=== PATIENT | female | born 1980 | race Caucasian/White ===

== ENCOUNTER 2022-02-07 20:19 | Emergency (ER) | payer OTHER ==
[~2022-02-07] VITALS: Ht 165.1 cm; Wt 90.9 kg
[2022-02-07] MEDS ORDERED: CYCL-838 PO (23:39)
[2022-02-07] MEDS ORDERED: METH4PAK PO (23:39)
[2022-02-07] MEDS ORDERED: KETOROLAC TROMETH 60MG/2ML VIAL IM ONE (23:45)
[2022-02-07 23:52] VITALS: BP 122/75
== END 2022-02-07 23:53 | disposition home or self-care (01) ==
LOC: ER 20:23
DX: S33.9XXA Sprain of unspecified parts of lumbar spine and pelvis, initial encounter (principal); Z88.6 Allergy status to analgesic agent; X58.XXXA Exposure to other specified factors, initial encounter; Y93.89 Activity, other specified; Y92.89 Other specified places as the place of occurrence of the external cause; Y99.8 Other external cause status
CPT/HCPCS: 72100; 96372; 99283; J1885

== ENCOUNTER 2022-02-09 18:30 | Emergency (ER) | payer OTHER ==
[~2022-02-09] VITALS: Ht 165.1 cm; Wt 90.9 kg
[~2022-02-09 18:30] MED LIST: CYCL-838 PO; METH4PAK PO
[2022-02-09] MEDS ORDERED: KETOROLAC TROMETH 30 MG/ML 1ML VIAL IM ONE (22:00)
[2022-02-09] MEDS ORDERED: methylPREDNISolone SOD SUCC 125 MG/2 ML VL IM ONE (22:00)
[2022-02-09] MEDS ORDERED: METH500T22 PO (22:44)
[2022-02-09] MEDS ORDERED: IBUP800T26 PO (22:44)
[2022-02-09 22:54] VITALS: BP 134/77
== END 2022-02-09 23:21 | disposition home or self-care (01) ==
LOC: ER 18:35
DX: S33.9XXD Sprain of unspecified parts of lumbar spine and pelvis, subsequent encounter (principal); M54.42 Lumbago with sciatica, left side; Z79.899 Other long term (current) drug therapy; Z88.8 Allergy status to other drugs, medicaments and biological substances; X58.XXXD Exposure to other specified factors, subsequent encounter
CPT/HCPCS: 96372; 99284; J1885; J2930